=== PATIENT | female | born 1975 ===

== ENCOUNTER 2025-06-26 14:08 | Outpatient (REF) | payer OTHER, SELFPAY ==
[2025-06-26 17:36] LABS: Anion Gap 10 (12-20); Blood Urea Nitrogen 12 mg/dL (9-16); Calcium 8.5 mg/dL (8.4-10.2); Carbon Dioxide 25 mmol/L (22-29); Chloride 108 mmol/L (96-108); Estimated Glomerular Filt Rate 57; Potassium 4.4 mmol/L (3.3-5.1); Sodium 139 mmol/L (135-145)
[2025-06-26 18:15] LABS: Total Protein Urine Random < 7 mg/dL (<12)
[2025-07-01 08:17] LABS: Metanephrine, Free 42 pg/mL (<=57); Normetanephrines, Free 68 pg/mL (<=148); Total Metanephrine, Free 110 pg/mL (<=205)
== END 2025-06-26 14:09 | disposition home or self-care (01) ==
LOC: HO.HKASLDS 14:08
PROVIDERS: PCP Family Medicine; Visit Provider Internal Medicine Nephrology
DX: I10 Essential (primary) hypertension (principal); Z79.899 Other long term (current) drug therapy
CPT/HCPCS: 36415; 80051; 82310; 82533; 82565; 82570; 83835; 84156; 84443; 84520

== ENCOUNTER 2025-06-26 14:08 | Outpatient (AMB) | payer OTHER, SELFPAY ==
--- NOTE | 2025-06-26 14:14 | HO.NEPHOV_ITS ---
Vital Signs 06/26/25 14:15 Height 5 ft 5 in Weight 201 lb BMI 33.4 BP 160/100 H Blood Pressure Location Lt brachial Position Sitting Pulse 87 Pulse Source Pulse Oximeter Pulse Oximetry (%) 96 Oxygen Delivery Method Room Air Intake Visit Reasons: ENP: Hypertension-LVM Learning Consultant Required: No Accompanied by: Self / Same As Patient Allergies amlodipine Allergy (Verified 06/26/25 14:18) Unknown lisinopril Allergy (Verified 06/26/25 14:18) Cough Penicillins Allergy (Verified 06/26/25 14:18) Swelling HPI Comments Details: Many thanks for referring this miguel patient for evaluation of labile and uncontrolled hypertension. She is 49 years of age and has BMI higher than desired. She claims to be compliant with her blood pressure medications but not very strict with low-sodium diet. She had lost weight in the past but has gained back some now. Her last echocardiogram was normal. She was on labetalol in the past but feels she gets palpitation with chest tightness when she takes higher doses. She has been on spironolactone 100 mg along with the losartan 25 mg daily. Prior to her recent PCP office visit she had not been taking spironolactone for at least 6 months. She had taken hydrochlorothiazide and amlodipine in 2019. She has very strong family history of hypertension(brother, sister, mother). She has no history of drug use. She does not take excessive nonsteroidal anti-inflammatories. She is not a diabetic and does not have any history of proteinuria. She has noticed a lot but has not been tested for sleep apnea. She has other clinical symptoms supportive of JACKI. She has no history of hypokalemia, uncontrolled thyroid disorders, hypercalcemia or ABBEY/CKD. She denies any retinopathy, proteinuria, CAD, CVA, CHF, carotid stenosis or PAD. She feels well. [facility] Medical History (Updated 06/26/25 @ 14:50 by Keaton Beasley MD) Seasonal allergies Obesity, class 1 Major depression Leg swelling Hypertension Hemorrhoids Change in bowel habits Asthma Anxiety Family History (Updated 06/26/25 @ 14:17 by RACHEL Mcleod) Mother Hypertension Brother Hypertension Father Hypertension Sister Hypertension Review of Systems Const All systems reviewed & are unremarkable except as noted in HPI and below Physical Exam Vital Signs: Last Vital Signs Pulse 87 06/26/25 14:15 BP 160/100 H 06/26/25 14:15 Pulse Ox 96 06/26/25 14:15 Oxygen Delivery Method Room Air 06/26/25 14:15 BMI result Body Mass Index 33.4 Const General: comfortable and no acute distress Orientation/consciousness: patient oriented x3 HEENT Head: Yes normocephalic Mouth: Normal oral and palatal mucosa present Eyes EOM: EOMs intact bilaterally Neck Neck: Yes supple Resp Auscultation: clear to auscultation bilaterally Cardio Jugular venous distension: no JVD Rate: regular rate GI Palpation (GI): Soft to palpation Auscultation: normal bowel sounds General: Yes no CVA tenderness Back/Spine/Pelvis Back: no CVA tenderness Skin General skin exam: no rashes or lesions noted Neuro General: patient oriented x3 and moves all extremities Extrem General: Yes no pedal edema Results Reviewed Nephrology Results: Sodium, (135-145) 139 mmol/L 06/26/25 Potassium, (3.3-5.1) 4.4 mmol/L 06/26/25 Chloride, (96-108) 108 mmol/L 06/26/25 Carbon Dioxide, (22-29) 25 mmol/L 06/26/25 BUN, (9-16) 12 mg/dL 06/26/25 Creatinine, (0.5-1.4) 1.03 mg/dL 06/26/25 Calcium, (8.4-10.2) 8.5 mg/dL 06/26/25 Urine Creatinine 53.12 mg/dL 06/26/25 Protein/Creatinin Ratio TNP 06/26/25 Assessment & Plan Assessment & Plan (1) Uncontrolled hypertension: Code(s): I10 - Essential (primary) hypertension Category: Medical Plan Low-sodium diet, weight loss and continued lifestyle modification Workup including sleep study, Doppler of renal artery ordered. Increased losartan to 50 mg daily. Continue spironolactone 100 mg daily Patient aware of monitoring potassium and kidney functions while on this medications Minimize nonsteroidal anti-inflammatories and needs to ensure adequate hydration Last echocardiogram normal. Not known to have any significant proteinuria/having retinopathy All these have been discussed in detail. Answered all questions and follow-up appointment given Orders: Orders TSH reflex Free T4 06/26/25 I10 - Essential (primary) hypertension Cortisol Random 06/26/25 I10 - Essential (primary) hypertension Electrolytes 06/26/25 I10 - Essential (primary) hypertension Blood Urea Nitrogen 06/26/25 I10 - Essential (primary) hypertension Creatinine 06/26/25 I10 - Essential (primary) hypertension Protein Creatinine Ratio, Ur 06/26/25 I10 - Essential (primary) hypertension US renal doppler 3 Weeks I10 - Essential (primary) hypertension Metanephrines, Plasma 06/26/25 I10 - Essential (primary) hypertension Calcium 06/26/25 I10 - Essential (primary) hypertension AMB 24 HR B/P Monitor PLACEMENT 06/26/25 I10 - Essential (primary) hypertension US renal BI 3 Weeks I10 - Essential (primary) hypertension RT PSG in-lab sleep study 06/26/25 I10 - Essential (primary) hypertension Medications: New losartan 50 mg PO DAILY 90 tabs 3RF Coding Level of Care Code New Pt Level 4 (07414) Diagnoses Uncontrolled hypertension I10
[2025-06-26 14:15] VITALS: BP 160/100; PULSE 87; O2SAT 96; BMI 33.4
--- OUTSIDE RECORDS SUMMARY | 2025-06-26 17:55 | XMS_ITS | Clinical Summary ---
[facility] Address [address] [place] [address] Care Team Providers Care Egg Processor Name Role Phone Unavailable Primary Care Provider Unavailabl e Social History Tobacco Use Types Packs/Day Years Used Date Smoking Tobacco: Never Assessed Comments Unknown Sex and Gender Information Value Date Recorded Sex Assigned at Not on file Legal Sex Female 3:33 PM EST Gender Identity Not on file Sexual Orientation Not on file Plan of Treatment Health Maintenance Due Date Last Done Comments Breast Cancer Screening 1976 DTaP,Tdap,and Td Vaccines (1 - Tdap) 1995 Hepatitis B Vaccines (1 of 3 - 19+ 3-dose series) 1995 Cervical Cancer Screening: P ap Smear 1997 Depression Screening 06/28/2024 COVID-19 Vaccine (1 - 2024-2 6 season) 2025 Influenza Vaccine (#1) 2025 RSV Immunization Adult Patie nts (1 - 1-dose 75+ series) 2051 HIB Vaccines Aged Out No longer eligi ble based on patient's age to complete this topic HPV Vaccines Aged Out No longer eligi ble based on patient's age to complete this topic Hepatitis A Vaccines Aged Out No long er eligible based on patient's age to complete this topic IPV Vaccines Aged Out No longer eligi ble based on patient's age to complete this topic MMR Vaccines Aged Out No longer eligi ble based on patient's age to complete this topic Meningococcal ACWY Vaccine Aged Out N o longer eligible based on patient's age to complete this topic Meningococcal B Vaccine Aged Out No l onger eligible based on patient's age to complete this topic Pneumococcal Vaccine: Pediat rics (0 to 5 Years) and At-Risk Patients (6 to 49 Years) Aged Out No longer eligible b ased on patient's age to complete this topic RSV Immunization Patients Un [place] 20 months Aged Out No longer eligible b ased on patient's age to complete this topic Varicella Vaccines Aged Out No longer eligible based on patient's age to complete this topic
== END 2025-06-26 15:07 | disposition home or self-care (01) ==
PROVIDERS: PCP Family Medicine; Visit Provider Internal Medicine Nephrology
DX: I10 Essential (primary) hypertension (principal)
CPT/HCPCS: 99204